=== PATIENT | female | born 2000 | race Two or more races ===

== ENCOUNTER 2022-02-25 08:41 | Observation (INO) | payer OTHER, SELFPAY ==
--- NOTE | 2022-02-25 08:41 | OBADM ---
This patient, Clau Victoria, admitted to the OB room Labor/Delivery/Recovery 106 for observation. Patient/family oriented to hospital policies and general routines including ID bracelet, bed and alarms, visiting hours, pain management, procedures, bathroom and other care routines, personal items, smoking policy, room service/diet, and visiting hours. Patient/Family are encouraged to report perceived risks to care and to ask questions if they do not understand what they are told or what they should do.
--- NOTE | 2022-02-25 08:55 | PC.NURSE ---
pt came in by EMS with abdominal pain. Pt is a with [facility]. Pt reports having abdominal pain since yesterday afternoon [address] Alexander in the office. Pt also reports throwing up multiple times and not being able to keep anything down since then. Pt also reports having chest pain. EMS obtained EKG prior to arrival and reports NSR and giving the pt 1 dose of zofran IV. Pt denies falling. Pt also denies complications during this .
[2022-02-25 09:16] VITALS: BP 132/90; PULSE 76
[2022-02-25] MEDS: FAMOTIDINE 20 MG/2 ML VIAL IV PUSH (09:22)
[2022-02-25] MEDS: DEXTROSE 5%/LACTATED RINGERS 1,000 ML 999 ML IV CONT (09:22)
[2022-02-25 09:24] VITALS: RESP 20; TEMP 36.5
[2022-02-25 09:26] LABS: Basophils Percent Auto 0.1 % (0.2-1.2); Hematocrit 34.2 % (37.0-47.0); Hemoglobin 11.4 g/dL (12.0-15.0); Immature Granulocyte Absolute 0.05 K/mm3 (0.00-0.031); Immature Granulocyte Percent A 0.4 % (0-0.5); Lymphocytes Absolute Auto 1.78 K/mm3 (0.9-3.2); Lymphocytes Percent Auto 13.6 % (18.3-44.2); Mean Corpuscular HGB Conc 33.3 g/dl (32-36); Mean Corpuscular Hemoglobin 29.5 pg (26-34); Mean Corpuscular Volume 88.4 fl (80-100); Mean Platelet Volume 10.6 fl (7.4-10.4); Monocytes Absolute Auto 0.7 K/mm3 (0.1-0.6); Monocytes Percent Auto 5.3 % (2.6-8.5); Neutrophils Absolute Auto 10.6 K/mm3 (1.3-6.7); Neutrophils Percent Auto 80.6 % (45.5-73.1); Platelet Count Result 335 k/mm3 (150-375); Red Blood Count 3.87 M/mm3 (4.2-5.4); Red Cell Distribution Width 12.2 % (11.5-14.5); White Blood Count 13.1 K/mm3 (4.5-10.0)
[2022-02-25 09:32] VITALS: BP 117/68; PULSE 93
[2022-02-25 09:34] VITALS: BMI 34.1
[2022-02-25 09:39] LABS: Alanine Aminotransferase 11 U/L (6-35); Albumin Level 4.1 g/dL (3.5-5.1); Alkaline Phosphatase 223 U/L (38-126); Anion Gap 16 mmol/L (8-16); Aspartate Amino Transferase 19 U/L (14-36); Bilirubin,Total 0.8 mg/dL (0.2-1.3); Blood Urea Nitrogen 8 mg/dL (7-17); Calcium 9.5 mg/dL (8.4-10.2); Carbon Dioxide 14 mmol/L (22-30); Chloride 106 mmol/L (98-107); Estimated CRCL calculation 175 ml/min; Estimated Glomerular Filt Rate > 60; Glucose 106 mg/dL (65-110); Potassium 3.7 mmol/L (3.4-5.0); Sodium 136 mmol/L (137-145)
[2022-02-25 09:46] VITALS: BP 131/79; PULSE 94
[2022-02-25 10:01] VITALS: BP 132/79; PULSE 87
[2022-02-25 10:17] VITALS: BP 127/87; PULSE 86
[2022-02-25 11:26] LABS: Appearance Urine Clear (Clear); Bilirubin Urine Negative (Negative); Blood Urine Negative (Negative); Color Urine Yellow (Yellow); Glucose Urine UA Trace mg/dL (Negative); Ketones Urine 4+ mg/dL (Negative); Leukocyte Esterase Ur Negative LEU/UL (Negative); Nitrate Urine Negative (Negative); Protein Urine Trace mg/dL (Negative); Specific Grav Ur >= 1.030 (1.001-1.035); Urobilinogen Urine 0.2 mg/dL (<2.0); pH Urine 5.5 (5.0-9.0)
[2022-02-25 11:35] LABS: Mucus Urine Rare /lpf; Squamous Epithelial Cell Urine Occasional /hpf (Few)
[2022-02-25 11:40] LABS: Add Urine Microscopic? YES
--- NOTE | 2022-02-25 11:41 | PC.NURSE ---
Dr. Ramires updated with pt urine results and tracing. MD aware of pt feeling better and okay with going home. Discharge order obtained from provider. Transmit script for pt to have 4mg Zofran q8hr PRN count of 15.
--- NOTE | 2022-03-01 08:07 | PM.OBTRLD ---
OB - Triage/Final Diagnosis Visit Information Comments/Additional reasons for admission: I have assessed the risk for this patient, Clau Victoria, and determined that she would benefit from observation care. Evaluation Laboratory results: Laboratory Tests 02/25/22 02/25/22 02/25/22 09:20 09:20 09:20 WBC 13.1 H RBC 3.87 L Hgb 11.4 L Hct 34.2 L MCV 88.4 MCH 29.5 MCHC 33.3 RDW 12.2 Plt Count 335 MPV 10.6 H Immature Gran % (Auto) 0.4 Neut % (Auto) 80.6 H Lymph % (Auto) 13.6 L [place] % (Auto) 5.3 Eos % (Auto) 0.0 Baso % (Auto) 0.1 L Lymph # (Auto) 1.78 [place] # (Auto) 0.7 H Eos # (Auto) 0.0 Baso # (Auto) 0.0 Abs Immat Gran (auto) 0.05 H Absolute Neuts (auto) 10.6 H Absolute Nucleated RBC 0.0 Nucleated RBC % 0.0 Sodium 136 L Potassium 3.7 Chloride 106 Carbon Dioxide 14 L Anion Gap 16 BUN 8 Creatinine 0.50 L Estim Creat Clear Calc 175 Estimated GFR > 60 Glucose 106 Calcium 9.5 Total Bilirubin 0.8 AST 19 ALT 11 Alkaline Phosphatase 223 H Total Protein 8.0 Albumin 4.1 Urine Color Yellow Urine Appearance Clear Urine pH 5.5 Ur Specific [place] >= 1.030 Urine Protein Trace Urine Glucose (UA) Trace H Urine Ketones 4+ H Ur Blood (Man) Negative Urine Nitrate Negative Urine Bilirubin Negative Urine Urobilinogen 0.2 Leukocyte Esterase Rfl Negative Urine RBC 3-5 H Urine WBC 4-6 H Ur Squamous Epith Cells Occasional Urine Mucus Rare Final Diagnosis (1) False labor after 37 completed weeks of gestation: Code(s): O47.1 - False labor at or after 37 completed weeks of gestation Status: Acute
== END 2022-02-25 12:10 | disposition home or self-care (01) ==
PROVIDERS: Admitting Provider Obstetrics & Gynecology; Visit Provider Obstetrics & Gynecology
DX: O47.1 False labor at or after 37 completed weeks of gestation (principal); Z3A.37 37 weeks gestation of pregnancy
CPT/HCPCS: 36415; 80053; 81001; 85025; 96374; 96375; G0378; G0379; J0131; J7121

== ENCOUNTER 2022-03-02 21:57 | Observation (INO) | payer OTHER, SELFPAY ==
[2022-03-02 21:23] VITALS: BP 115/78; PULSE 82; TEMP 36.7
[2022-03-02 21:31] LABS: Anion Gap 10 mmol/L (8-16); Blood Urea Nitrogen 14 mg/dL (7-17); Calcium 9.4 mg/dL (8.4-10.2); Carbon Dioxide 22 mmol/L (22-30); Chloride 98 mmol/L (98-107); Estimated Glomerular Filt Rate > 60; Glucose 80 mg/dL (65-110); Potassium 2.9 mmol/L (3.4-5.0); Sodium 130 mmol/L (137-145)
--- NOTE | 2022-03-02 21:52 | OBADM ---
This patient, Clau Victoria, admitted to the OB room OB Post 116 for observation. Patient/family oriented to hospital policies and general routines including ID bracelet, bed and alarms, visiting hours, pain management, procedures, bathroom and other care routines, personal items, smoking policy, room service/diet, and visiting hours. Patient/Family are encouraged to report perceived risks to care and to ask questions if they do not understand what they are told or what they should do.
--- NOTE | 2022-03-02 21:59 | PC.NURSE ---
Notified Dr. Ramires of patient BMP results and NST result. Overnight observation orders received.
[2022-03-02] MEDS: POTASSIUM CHLORIDE INJ 40 MEQ in SODIUM CHLORIDE 0.45% 1,000 ML 250 MEQ IV CONT (22:50)
--- NOTE | 2022-03-02 22:59 | PC.NURSE ---
Updated Dr. Ramires that patient reports burning with IV infusion. Order to decrease rate from 250ml/hr to 175ml/hr.
[2022-03-02] MEDS: FAMOTIDINE 20 MG/2 ML VIAL IV PUSH (23:20)
[2022-03-02] MEDS: ONDANSETRON INJ 4 MG/2 ML VIAL IV PUSH (23:20)
[2022-03-02 23:26] VITALS: BP 125/76; PULSE 85; TEMP 36.9
[2022-03-03 03:20] VITALS: TEMP 36.6
[2022-03-03 03:24] VITALS: BP 117/69; PULSE 96
[2022-03-03] MEDS: POTASSIUM CHLORIDE INJ 40 MEQ in SODIUM CHLORIDE 0.45% 1,000 ML 175 MEQ IV CONT (04:49)
[2022-03-03 06:25] VITALS: BP 110/68; PULSE 90; RESP 15; TEMP 36.6
[2022-03-03 06:44] LABS: Anion Gap 4 mmol/L (8-16); Blood Urea Nitrogen 13 mg/dL (7-17); Carbon Dioxide 25 mmol/L (22-30); Chloride 101 mmol/L (98-107); Estimated Glomerular Filt Rate > 60; Glucose 88 mg/dL (65-110); Potassium 3.5 mmol/L (3.4-5.0); Sodium 130 mmol/L (137-145)
[2022-03-03 06:58] VITALS: PULSE 79
--- NOTE | 2022-03-03 07:15 | P.HP_ITS ---
H&P: HPI History of Present Illness Date/Time: 03/03/22 07:15 Chief Complaint: hyperemesis Narrative: Clau is a 21yo G1 at 38w who was at [place] with hypokalemia and decreased FM. She left there and came here for monitoring. They started electrolyte replacement there, but K was still 2.9 on admission here. This morning K is up to 3.5. Na still 3.0 but she is feeling much better. She is tolerating PO. Feeling movement and NST reactive. Review of Systems Review of Systems: All systems reviewed & are unremarkable except as noted in HPI and below Meds Home Medications and Allergies Home Medications Medication Instructions Recorded Confirmed Type ondansetron HCl 4 mg tablet 4 mg PO Q8H PRN nausea #15 tabs 02/25/22 Rx Allergies Allergy/AdvReac Type Severity Reaction Status Date / Time No Known Allergies Allergy Verified 02/25/22 09:21 Vital Signs Vital Signs - 24 hr 03/02/22 21:23 03/02/22 23:26 03/03/22 03:24 Temperature 98.1 F 98.4 F Pulse Rate 82 85 96 Respiratory Rate Blood Pressure 115/78 125/76 117/69 Oxygen Delivery 03/03/22 03:20 03/03/22 06:25 03/02/22 22:34 Temperature 97.9 F 98 F Pulse Rate 90 Respiratory Rate 15 Blood Pressure 110/68 Oxygen Delivery Room Air 03/03/22 06:58 Temperature Pulse Rate 79 Respiratory Rate Blood Pressure Oxygen Delivery Exam Const: General: no acute distress Resp: Effort & Inspection: normal respiratory effort Auscultation: clear to auscultation bilaterally Cardio: Rate: regular rate Rhythm: regular rhythm GI: GI Palp: Yes Soft to palpation Extrem: General: normal to inspection H&P: Results Labs Labs: [facility] 03/02/22 03/03/22 21:14 06:25 Sodium 130 L 130 L Potassium 2.9 L 3.5 Chloride 98 101 Carbon Dioxide 22 25 BUN 14 D 13 Creatinine 1.00 1.00 Glucose 80 88 Calcium 9.4 9.0 Assessment and Plan Assessment and plan (1) Hyperemesis affecting , antepartum: Code(s): O21.0 - Mild hyperemesis gravidarum Status: Acute (2) Hypokalemia due to loss of potassium: Code(s): E87.6 - Hypokalemia Status: Acute (3) Hyponatremia: Code(s): E87.1 - Hypo-osmolality and hyponatremia Status: Acute Plan s/p replacement of potassium and partial replacement of sodium she desires discharge now tolerating PO, will get gatorade on her way home has office follow up tomorrow
== END 2022-03-03 07:30 | disposition home or self-care (01) ==
LOC: ANHOBPP 03-03 07:20
PROVIDERS: Admitting Provider Obstetrics & Gynecology; Visit Provider Obstetrics & Gynecology
DX: O21.0 Mild hyperemesis gravidarum (principal); O99.283 Endocrine, nutritional and metabolic diseases complicating pregnancy, third trimester; E87.6 Hypokalemia; E87.1 Hypo-osmolality and hyponatremia; Z3A.38 38 weeks gestation of pregnancy
CPT/HCPCS: 36415; 59025; 80048; 96365; 96366; 96375; G0378; G0379; J2405; J3480

== ENCOUNTER 2022-03-11 12:12 | Inpatient (IN) | payer OTHER, SELFPAY ==
[2022-03-11] VITALS (58 sets, daily range): BP systolic 105–155; BP diastolic 34–130; PULSE 67–150; RESP 18; TEMP 36.3–36.8; O2SAT 97–100; BMI 34.4
--- OUTSIDE RECORDS SUMMARY | 2022-03-11 12:18 | XMS_ITS ---
:2000 Author Care Team Providers Name Role Phone CONSUELO MILLER MD Primary Care Provider [phone] Allergies Code Code System Name Reaction Severity Status Onset NKDA ? Medications Name Status Start Date Stop Date ? ? + DHA 28 mg iron-800 mcg-200 mg oral pack Active ? Not available Take by oral route. Problems Name Status Onset Date Source ? Active 02/24/2022 ? Procedures Date Name Performed by ? ? Other Information not avai lable 03/04/2022 US, Obstetric, Follow-up [place] [address] [place] [address] (Work Place) Results Lab Results Date Name Specimen Result Interpretation Description Value Range Status Address ? 02/24/2022 Culture, ? Result see results ? Final [facility] Urine Report below Infectious Disease: [address] [place] 02/24/2022 Culture: ? Result see results ? Final [facility] B Report below Infectiou s Strep Screen Dise [place]se: [id number] [address] [place] 02/24/2022 Drug Screen, Urine ? Amphetamine negative ? ? [place]: Urine s: 2016
--- OUTSIDE RECORDS SUMMARY | 2022-03-11 12:18 | XMS_ITS | Encounter Summary ---
:2000 Author Care Team Providers Name Role Phone Per Alexander MD Primary Care Provider [phone] Reason for Visit OB visit Assessment and Plan 1. Routine care Discussion Note: None recorded.Patient educational handouts: No information available. Plan of Care Reminders Provider Appointments None recorded. ? ? Lab None recorded. ? ? Referral None recorded. ? ? Procedures None recorded. ? ? Surgeries None recorded. ? ? Imaging None recorded. ? ? Medications Name Start Date ? ? + DHA 28 mg iron-800 mcg-200 mg oral pack ? Take by oral route. Medications Administered None recorded. Vitals Height Weight BMI Blood Pressure 5 ft 4 in 213 lbs 36.6 kg/m2 120/88 mm[Hg] Results Lab Results None recorded. Allergies Code Code System Name Reaction Severity Onset NKDA ? ? ? Problems Name Status Onset Date Source ? Active 02/24/2022 ? Procedures Date Name Performed by ? ? Other Information not avai lable 03/04/2022 US, Obstetric, Follow-up [place] [address] [place] [address] (Work Place) Vaccine List None recorded. Social History Tobacco Smoking Status Unknown If Ever Smoked What type of diet are you following? REGULAR What is the highest grade or level of school you have [id number] 4-0 completed or the highest
--- OUTSIDE RECORDS SUMMARY | 2022-03-11 12:19 | XMS_ITS | Encounter Summary ---
:2000 Author Care Team Providers Name Role Phone Per Alexander MD Primary Care Provider [phone] Reason for Visit OB visit Assessment and [...] BMI Blood Pressure 5 ft 4 in 198 lbs 34 kg/m2 129/85 mm[Hg] Results Lab Results None recorded. Allergies Code Code System Name Reaction Severity Onset NKDA ? ? ? Problems Name Status Onset Date Source ? Active 02/24/2022 ? Procedures Date Name Performed by ? ? Other Information not avai lable 03/04/2022 US, Obstetric, Follow-up [place] [address] [address] (Work Place) Vaccine List None recorded. Social History Tobacco Smoking Status Unknown If Ever Smoked What type of diet are you following? REGULAR What is the highest grade or level of school you have [id number] 4-0 completed or the highest
--- OUTSIDE RECORDS SUMMARY | 2022-03-11 12:19 | XMS_ITS | Encounter Summary ---
:2000 Author Care Team Providers Name Role Phone Per Alexander MD Primary Care Provider [phone] Reason for Visit new OB pt is here today NOB. Possible 35/6. las t u/s at 24 weeks. Patient is in pain and vomiting at this time Assessment and Plan 1. Routine care Discussion [...] BMI Blood Pressure 5 ft 4 in 176 lbs 30.2 kg/m2 122/83 mm[Hg] Results Lab Results None recorded. Allergies Code Code System Name Reaction Severity Onset NKDA ? ? ? Problems Name Status Onset Date Source ? Active 02/24/2022 ? Procedures Date Name Performed by ? ? Other Information not avai lable Vaccine List None recorded. Social History Tobacco Smoking Status Unknown If Ever Smoked What type of diet are you following? REGULAR What is the highest grade or level of school you have [id number] 4-0 completed or the highest degree you have received? Are you able to walk? YESWOREST Are you blind or do you have difficulty seeing? N
--- OUTSIDE RECORDS SUMMARY | 2022-03-11 12:19 | XMS_ITS | Encounter Summary ---
:2000 Author Reason for Visit ob routine visit Assessment and Plan 1. Routine care --Awaiting records from prior physician ? urinalysis, dipstick 2. Fundal height high for dates ? US, obstetric, 3rd trimester 3. Elevated blood-pressure reading with out diagnosis of hypertension --Pt sent hme with blood pressure cuff, directed to take BP twice daily and keep a log 4. Mixed anxiety and depressive disorde r ? Zoloft 50 mg tablet ? counseling referral Discussion Note: None recorded.Patient educational handouts: No information available. Plan of Care Reminders Provider Appointments None recorded. ? ? Lab Urinalysis, Dipstick 01/23/2022 In-Office Order Referral Counseling [facility] Procedures None recorded. ? ? Surgeries None recorded. ? ? Imaging US, Obstetric, 3Rd 01/23/2022 [facility] Trimester Scheduling Medications Name Start Date ? ? famotidine ? ondansetron 8 mg disintegrating tablet ? Place 1 tablet twice a day by translingual route. prenat 85-iron 40 mg,10 mg-folic acid 1 mg-dha 300 mg- fish oil capsule ? Take 1 capsule every day by oral route. Zoloft 50 mg tablet ? Take 1 tablet every day by oral route. Medications Administered None recorded. Vitals Height Weight BMI Blood Pressure 5 ft 6 in 208.4 lbs 33.6 kg/m2 (1) 144/90 mm[H g] (2) 136/86 mm[Hg ] Results Lab Results
--- NOTE | 2022-03-11 13:11 | LDADM ---
This patient, Clau Victoria, was admitted to Labor/Delivery/Recovery 104 on 03/11/22 at 12:12. Plans for labor, pain management and were discussed with patient. Patient/family oriented to hospital policies and general routines including ID bracelet, bed and alarms, visiting hours, pain management, procedures, bathroom and other care routines, personal items, smoking policy, room service/diet and guest tray routines, security routines, and visiting hours. Patient/Family are encouraged to report perceived risks to care and to ask questions if they do not understand what they are told or what they should do. See OBIX for further documentation.
--- NOTE | 2022-03-11 13:34 | PM.IMHP ---
H&P: HPI History of Present Illness Date/Time: 03/11/22 13:34 Chief Complaint: induction of labor Narrative: G1 at 39.2 IOL for decreased FM. Cervix 4cm. uncomplicated. GBS neg. Review of Systems Review of Systems: All systems reviewed & are unremarkable except as noted in HPI and below PMFSH Social History Social History Smoking status: Never smoker Substance use: current Last use: 01/2022 Spiritual care concerns: No Meds Home Medications and Allergies Home Medications Medication Instructions Recorded Confirmed Type ondansetron HCl 4 mg tablet 4 mg PO Q8H PRN nausea #15 tabs 02/25/22 Rx Allergies Allergy/AdvReac Type Severity Reaction Status Date / Time No Known Allergies Allergy Verified 02/25/22 09:21 Vital Signs Vital Signs - 24 hr 03/11/22 13:01 Oxygen Delivery Room Air Exam Const: General: no acute distress Resp: Effort & Inspection: normal respiratory effort Auscultation: clear to auscultation bilaterally Cardio: Rate: regular rate Rhythm: regular rhythm GI: GI Palp: Yes Soft to palpation Extrem: General: normal to inspection Assessment and Plan Assessment and plan (1) Decreased movement: Code(s): O36.8190 - Decreased movements, unspecified trimester, not applicable or unspecified Status: Acute (2) Term : Code(s): Z34.90 - Encounter for supervision of normal , unspecified, unspecified trimester Status: Acute Plan gbs neg arom clear 4cm/80/-2 pitocin
[2022-03-11 13:36] LABS: Basophils Percent Auto 0.2 % (0.2-1.2); Eosinophils Percent Auto 0.1 % (0-4.4); Hematocrit 31.2 % (37.0-47.0); Hemoglobin 10.3 g/dL (12.0-15.0); Immature Granulocyte Absolute 0.03 K/mm3 (0.00-0.031); Immature Granulocyte Percent A 0.3 % (0-0.5); Lymphocytes Absolute Auto 1.67 K/mm3 (0.9-3.2); Lymphocytes Percent Auto 16.9 % (18.3-44.2); Mean Corpuscular Hemoglobin 29.2 pg (26-34); Mean Corpuscular Volume 88.4 fl (80-100); Mean Platelet Volume 11.8 fl (7.4-10.4); Monocytes Absolute Auto 0.6 K/mm3 (0.1-0.6); Monocytes Percent Auto 6.3 % (2.6-8.5); Neutrophils Absolute Auto 7.6 K/mm3 (1.3-6.7); Neutrophils Percent Auto 76.2 % (45.5-73.1); Platelet Count Result 241 k/mm3 (150-375); Red Blood Count 3.53 M/mm3 (4.2-5.4); Red Cell Distribution Width 13.1 % (11.5-14.5); White Blood Count 9.9 K/mm3 (4.5-10.0)
[2022-03-11] MEDS: OXYTOCIN 30 UNITS/NS 500 ML 30 UNITS/500 ML BAG 6 UNITS IV CONT (13:36)
[2022-03-11] MEDS: LACTATED RINGERS 1,000 ML 125 ML IV CONT (13:37)
[2022-03-11] MEDS: fentaNYL CITRATE INJ (*CRX) 100 MCG/2 ML VIAL 50 MCG IV PUSH (15:16)
--- NOTE | 2022-03-11 15:17 | P.PNAN_ITS ---
Anes - Eval Pre Procedure Procedure: Labor Epidural Date/Time: 03/11/22 15:17 Surgeon: Keyla Preop Diagnosis: Labor Pain Pre Op Diagnosis: Induction of labor Patient Data Age: 21 Gender: F Height: 1.68 m Weight: 97 kg Last Vital Signs Temp 36.6 C 03/11/22 13:30 Pulse 67 03/11/22 15:15 BP 140/92 H 03/11/22 15:15 O2 Del Method Room Air 03/11/22 13:01 Allergies Allergy/AdvReac Type Severity Reaction Status Date / Time No Known Allergies Allergy Verified 02/25/22 09:21 Home Medications Medication Instructions Recorded Confirmed Type ondansetron HCl 4 mg tablet 4 mg PO Q8H PRN nausea #15 tabs 02/25/22 Rx Laboratory Tests 03/11/22 03/11/22 03/11/22 13:30 13:30 13:30 WBC 9.9 K/mm3 K/mm3 (4.5-10.0) RBC 3.53 M/mm3 L M/mm3 (4.2-5.4) Hgb 10.3 g/dL L g/dL (12.0-15.0) Hct 31.2 % L % (37.0-47.0) MCV 88.4 fl fl (80-100) MCH 29.2 pg pg (26-34) MCHC 33.0 g/dl g/dl (32-36) RDW 13.1 % % (11.5-14.5) Plt Count 241 k/mm3 k/mm3 (150-375) MPV 11.8 fl H fl (7.4-10.4) Immature Gran % (Auto) 0.3 % % (0-0.5) Neut % (Auto) 76.2 % H % (45.5-73.1) Lymph % (Auto) 16.9 % L % (18.3-44.2) [place] % (Auto) 6.3 % % (2.6-8.5) Eos % (Auto) 0.1 % % (0-4.4) Baso % (Auto) 0.2 % % (0.2-1.2) Lymph # (Auto) 1.67 K/mm3 K/mm3 (0.9-3.2) [place] # (Auto) 0.6 K/mm3 K/mm3 (0.1-0.6) Eos # (Auto) 0.0 K/mm3 K/mm3 (0-0.3) Baso # (Auto) 0.0 K/mm3 K/mm3 (0.0-0.1) Abs Immat Gran (auto) 0.03 K/mm3 K/mm3 (0.00-0.031) Absolute Neuts (auto) 7.6 K/mm3 H K/mm3 (1.3-6.7) Absolute Nucleated RBC 0.0 K/mm3 K/mm3 (0.0-0.012) Nucleated RBC % 0.0 % % (0.0-0.2) RPR Pending Blood Type O Positive Antibody Screen Negative : gestational age (, ROBERT 03/16/22) Patient hx anesthesia problems: none Family hx anesthesia problems: none Results Review: All pre-operative results and documents have been reviewed as part of the pre- operative evaluation. [facility] Social History Social History Smoking status: Never smoker Substance use: current Last use: 01/2022 Spiritual care concerns: No Exam Day of Procedure 03/11/22 15:17 Patient weight: normal Heart: regular rate and rhythm Lungs: normal air movement Airway: Mallampati scale class II Neurological: alert and oriented
[2022-03-11 17:42] LABS: Amphetamine Screen Urine Negative (Negative); Barbiturate Screen Urine Negative (Negative); Benzodiazepines Screen Urine Negative (Negative); Cannabinoid Screen Urine Negative (Negative); Cocaine Screen Urine Negative (Negative); Methadone Screen Urine Negative (Negative); Opiate Screen Urine Negative (Negative); Phencyclidine Screen Urine Negative (Negative)
--- NOTE | 2022-03-11 19:36 | PM.OBPRVD ---
OB - Delivery Note Procedure Delivery date: 03/11/22 Procedure: Induction method: AROM and Per Pitocin Protocol Delivery monitor: External FHT and Internal Uterine Route of delivery: Laceration Description: Perineal - 2nd Degree Delivery repair: vicryl Specimen: No Quantitative Blood Loss (ml): 180 Anesthesia type: Epidural Disposition: Floor Narrative: With adequate expulsive efforts by the mother, the baby's head was delivered OA. The baby's anterior shoulder was delivered under the pubic symphysis without difficulty. The posterior shoulder and the rest of the baby delivered without difficulty. The infant was placed on the mothers chest and suctioned and stimulated. The cord was clamped and cut after 30 seconds. Mother and baby both stable. Baby Date of : 03/11/22 Time of : 18:53 Weeks of gestation at delivery: 39 gender: Male Weight (pounds): 7 Weight (ounces): 3 presentation: vertex Placenta delivery description: Spontaneous Cord Vessel Description: 3 Vessels, Nuchal Cord and Delayed Cord Clamping score one minute: 9 score five minutes: 9
[2022-03-11] MEDS: OXYTOCIN 30 UNITS/NS 500 ML 30 UNITS/500 ML BAG 125 UNITS IV CONT (19:42)
[2022-03-11] MEDS: IBUPROFEN 600 MG TABLET PO (19:54)
[2022-03-11] MEDS: BENZOCAINE 20% AER SPR (*SP) 56 GM CAN 1 SPRAY TOPICAL (21:26)
[2022-03-11] MEDS: WITCH HAZEL 40 PADS 1 PAD TOPICAL (21:26)
--- NOTE | 2022-03-11 22:25 | ADMGEN ---
This patient, Clau Victoria, was admitted to OB 2nd Floor Room 287-00. Patient/family oriented to hospital policies and general routines including ID bracelet, bed and alarms, visiting hours, pain management, procedures, bathroom and other care routines, personal items, smoking policy, room service/diet, and visiting hours. Information on how to activate the Rapid Response Team has been discussed. Patient/Family are encouraged to report perceived risks to care and to ask questions if they do not understand what they are told or what they should do.
[2022-03-12] MEDS: IBUPROFEN 600 MG TABLET PO ×3 (01:45→17:11)
[2022-03-12] MEDS: ACETAMINOPHEN 325 MG TABLET 650 MG PO (01:45)
[2022-03-12 03:30] VITALS: BP 125/82; PULSE 89; RESP 18; TEMP 36.9
[2022-03-12 05:26] LABS: Hemoglobin 8.7 g/dL (12.0-15.0)
[2022-03-12 07:43] LABS: Rapid Plasma Reagin Non-Reactive (NonReactive)
--- NOTE | 2022-03-12 08:14 | P.PNOB_ITS ---
OB - PN: Subj Subjective Date/time seen: 03/12/22 08:14 Patient comments: no complaints and pain well controlled baby status: doing well [place] feeding status: breast and bottle feeding OB - PN: Obj Data Labs CBC & Chem 7: 03/12/22 03:40 Labs: Laboratory Results - last 24 hr 03/11/22 03/11/22 03/11/22 13:30 13:30 13:30 WBC 9.9 RBC 3.53 L Hgb 10.3 L Hct 31.2 L MCV 88.4 MCH 29.2 MCHC 33.0 RDW 13.1 Plt Count 241 MPV 11.8 H Immature Gran % (Auto) 0.3 Neut % (Auto) 76.2 H Lymph % (Auto) 16.9 L [place] % (Auto) 6.3 Eos % (Auto) 0.1 Baso % (Auto) 0.2 Lymph # (Auto) 1.67 [place] # (Auto) 0.6 Eos # (Auto) 0.0 Baso # (Auto) 0.0 Abs Immat Gran (auto) 0.03 Absolute Neuts (auto) 7.6 H Absolute Nucleated RBC 0.0 Nucleated RBC % 0.0 Urine Opiates Screen Urine Methadone Screen Ur Barbiturates Screen Ur Phencyclidine Scrn Ur Amphetamine Screen U Benzodiazepines Scrn Urine Cocaine Screen U Cannabinoids Screen RPR Non-reactive Blood Type O Positive Antibody Screen Negative 03/11/22 03/12/22 17:13 03:40 WBC RBC Hgb 8.7 L Hct 27.0 L MCV MCH MCHC RDW Plt Count MPV Immature Gran % (Auto) Neut % (Auto) Lymph % (Auto) [place] % (Auto) Eos % (Auto) Baso % (Auto) Lymph # (Auto) [place] # (Auto) Eos # (Auto) Baso # (Auto) Abs Immat Gran (auto) Absolute Neuts (auto) Absolute Nucleated RBC Nucleated RBC % Urine Opiates Screen Negative Urine Methadone Screen Negative Ur Barbiturates Screen Negative Ur Phencyclidine Scrn Negative Ur Amphetamine Screen Negative U Benzodiazepines Scrn Negative Urine Cocaine Screen Negative U Cannabinoids Screen Negative RPR Blood Type Antibody Screen OB - PN A/P Plan day: 1 Plan: routine care Time Spent With Patient Time: Total time spent is greater than 50% in coordination of care (as documented) at patient's floor/unit and/or counseling patient: Time with patient: less than 15 minutes Exam Narrative: NAD abdomen soft, nontender, fundus firm below the umbilicus Extremities nontender, 1+ edema
[2022-03-12 08:45] VITALS: BP 129/84; PULSE 88; RESP 18; TEMP 37.1; O2SAT 100
--- NOTE | 2022-03-12 08:50 | WPDANLDPN2 ---
Anes-Prog Note L&D Date/Time: 03/12/22 08:50 Comfortable throughout: labor and delivery Neuraxial method: epidural Epidural/Spinal procedure site: clean & non-tender Neuro status: Neuro function grossly intact. Cardiovascular status: normal Respiratory status: normal Airway patency: baseline Mental status: baseline Post-Op hydration status: normal Vital Signs: Last Vital Signs Temp 36.9 C 03/12/22 03:30 Pulse 89 03/12/22 03:30 Resp 18 03/12/22 03:30 BP 125/82 03/12/22 03:30 Pulse Ox 100 03/11/22 16:13 O2 Del Method Room Air 03/12/22 03:30 Pain score (VAS): 2 I/O: Intake & Output 03/11/22 03/12/22 03/12/22 23:59 07:59 15:59 Intake Total 1000 Balance 1000 Patient feedback: Patient satisfied with anesthetic care.
[2022-03-12] MEDS: MULTIVIT/MIN/PREN/FOL AC/IRON TABLET 1 TAB PO (09:13)
[2022-03-12] MEDS: POLYSACCHARIDE IRON COMPLEX 150 MG CAPSULE PO ×2 (09:13→17:11)
[2022-03-12] MEDS: DOCUSATE SODIUM 100 MG CAPSULE PO ×2 (09:14→17:11)
[2022-03-12 12:18] VITALS: BP 111/60; PULSE 78; RESP 16; TEMP 36.7; O2SAT 99
--- NOTE | 2022-03-12 15:38 | PC.NURSE ---
[id number] Introductions were made, then consulted with patient to assess needs related to . Mother led the conversation with her?plans to feed?her infant and the?experience so far. Mother describes how she has been sleeping in bed with her opening the safe sleep conversation. RN encouraged to use skin to skin to get to know her infant and watch for feeding cues. Resources provided for inpatient and outpatient services using a resource guide and mom/baby guide. Mother voiced understanding of information and will call if there is a request for assistance. 0904 - Infant placed skin to skin. 0946 - is skin to skin. Mother is encouraged to stimulate infant for feeding. Mother is on her phone and not actively stimulating at this time. RN encouraged mother to watch for feeding cues, stimulate infant to awaken and feed, Mother voiced understanding to call for assistance when is seeking to breastfeed or doesn't wake to feed, or there's discomfort with .
[2022-03-12 20:00] VITALS: BP 121/65; PULSE 92; RESP 18; TEMP 36.5
[2022-03-13] MEDS: ACETAMINOPHEN 325 MG TABLET 650 MG PO (01:27)
[2022-03-13] MEDS: IBUPROFEN 600 MG TABLET PO ×2 (01:28→09:32)
--- NOTE | 2022-03-13 07:46 | PM.OBPNVD ---
OB - PN: Subj Subjective Date/time seen: 03/13/22 07:46 Patient comments: no complaints, pain well controlled and tolerating diet OB - PN: Obj Data Labs CBC & Chem 7: 03/12/22 03:40 OB - PN A/P Plan day: 2 Plan: routine care and discharge home Time Spent With Patient Time: Total time spent is greater than 50% in coordination of care (as documented) at patient's floor/unit and/or counseling patient: Exam Const: General: comfortable and no acute distress Resp: Effort & Inspection: normal respiratory effort Auscultation: no rales, no rhonchi and no wheezes Cardio: Rate: regular rate Heart sounds: no click, no murmurs and no rubs GI: GI Palp: Yes Soft to palpation and No Tenderness to palpation present (GI) Auscultation: normal bowel sounds Extrem: General: normal to inspection, no pedal edema and no calf tenderness
--- NOTE | 2022-03-13 07:47 | PM.OBDSVD ---
DS: Admitting Diagnosis Discharge Date March 13, 2022 Admitting Diagnosis Term OB - DS: Summary OB Procedures : None OB Procedures Intrapartum: Spontaneous Vag Delivery OB Procedures: : None Time Spent with Patient Time attestation: Total time spent providing and/or coordinating discharge services: Discharge Plan Discharge Discharging Clinician: Cristobal Alexander Patient Disposition: Home, Self-Care Activity: pelvic rest Diet: regular Patient Instructions: Antibiotic Form Stand Alone Forms: General Discharge Information Follow-up/Referrals: Cristobal Alexander MD [Physician] - Discharge Medications: Discontinued ondansetron HCl 4 mg Tablet 4 mg PO Q8H PRN (Reason: nausea) Qty: 15 0RF Date of admission: 03/11/22 12:12 Primary Care Provider: PHYSICIAN,IT SERVICE MANAGER Admitting Provider: Ninoska Ramires Attending physician on admission: Ninoska Ramires Condition: Stable
[2022-03-13 07:55] VITALS: BP 117/65; PULSE 81; RESP 16; TEMP 36.3; O2SAT 100
[2022-03-13] MEDS: MULTIVIT/MIN/PREN/FOL AC/IRON TABLET 1 TAB PO (09:31)
[2022-03-13] MEDS: POLYSACCHARIDE IRON COMPLEX 150 MG CAPSULE PO (09:32)
[2022-03-13] MEDS: DOCUSATE SODIUM 100 MG CAPSULE PO (09:32)
--- NOTE | 2022-03-13 10:43 | PC.NURSE ---
Patient viewed the discharge video Mother & Baby Care, The First Two Weeks . Patient was given the opportunity and encouraged to ask questions. Patient verbalized understanding of information shared and has been given the mother/baby guide for home reference.
[2022-03-14 09:58] VITALS: BP 126/72; PULSE 80; RESP 20; TEMP 36.9; O2SAT 100
== END 2022-03-13 11:29 | disposition home or self-care (01) | DRG 807 ==
LOC: ANHLDR 12:20 → ANHOB2 03-12 14:55 → ANHLDR 03-14 11:21
PROVIDERS: Admitting Provider Obstetrics & Gynecology; Visit Provider Obstetrics & Gynecology
DX: O36.8130 Decreased fetal movements, third trimester, not applicable or unspecified (principal); Z37.0 Single live birth; O70.1 Second degree perineal laceration during delivery; Z3A.39 39 weeks gestation of pregnancy
CPT/HCPCS: 36415; 80307; 85014; 85018; 85025; 86592; 86850; 86900; 86901; A9270; J2590; J2795; J3010; J7120